=== PATIENT | female | born 1955 | race Caucasian/White ===

== ENCOUNTER → 2017-08-23 16:56 | Outpatient (CLI) | payer OTHER ==
[2016-04-12 10:39] VITALS: BMI 21.0
[~2017-08-23 16:56] MED LIST: MOBIC7.5 MG PO; MULTIPLE VITAMI1 TA1 PO
== END | disposition home or self-care (01) ==
LOC: D.MAMMO 16:00
DX: Z12.31 Encounter for screening mammogram for malignant neoplasm of breast (principal)

== ENCOUNTER 2019-08-13 08:00 | Outpatient (CLI) | payer OTHER ==
[2016-04-12 10:39] VITALS: BMI 21.0
== END 2019-08-13 23:59 | disposition home or self-care (01) ==
LOC: D.MAMMO 08:00
PROVIDERS: ATTEND Family Medicine
DX: Z12.31 Encounter for screening mammogram for malignant neoplasm of breast (principal)